=== PATIENT | male | born 1955 | race Caucasian/White ===

== ENCOUNTER 2023-05-15 20:47 | Emergency (ER) | payer OTHER ==
[~2023-05-15] VITALS: Ht 193 cm; Wt 131.1 kg
[~2023-05-15 20:47] MED LIST: AUGMENTIN 875875 MG PO; FARXIGA5 M1 PO; HYDROCODONE BIT1 T11 PO; LANTUS100 U/ML SC; LISINOPRIL30 MG PO; METFORMIN500 MG PO; NOVOLOG FLEX100 U/ML SC; SIMVASTATIN20 MG PO; ZOFRAN4 MG PO
[2023-05-15 21:15] LABS: BASO # 0.1 10*3/uL (0.0-0.1); BASO % 0.9 % (0.0-1.0); EOS # 0.3 10*3/uL (0.0-0.4); EOS % 3.3 % (1.0-4.0); HEMATOCRIT 22.9 % (42.0-52.0); LYMPH # 1.7 10*3/uL (1.3-4.4); LYMPH % 17.1 % (27.0-41.0); MEAN CELL VOLUME 93.5 fl (80.0-94.0); MEAN CORPUSCULAR HGB 32.2 pg (27.0-31.0); MEAN CORPUSCULAR HGB CONC 34.5 g/dl (33.0-37.0); MEAN PLATELET VOLUME 9.3 fl (9.6-12.3); MONO # 0.6 10*3/uL (0.1-1.0); MONO % 6.1 % (3.0-9.0); NEUT # 6.9 10*3/uL (2.3-7.9); NEUT % 70.7 % (47.0-73.0); PLATELET COUNT AUTOMATED 261 10*3/uL (130-400); RED BLOOD COUNT 2.45 10*6/uL (4.50-5.90); WHITE BLOOD COUNT 9.8 10*3/uL (4.8-10.8)
[2023-05-15 21:16] LABS: VENOUS PH 7.346 (7.37-7.45)
[2023-05-15 21:27] LABS: ACT PARTIAL THROMBO TIME 24.8 SECONDS (20.0-32.1)
[2023-05-15 21:46] LABS: POTASSIUM 4.7 mmol/L (3.4-5.1); TOTAL PROTEIN 6.1 gm/dL (6.0-8.0)
[2023-05-15 21:49] LABS: LIPASE 73 U/L (12-53)
[2023-05-15 21:56] LABS: ETHYL ALCOHOL < 3.0 mg/dl (<3)
[2023-05-16 01:01] LABS: URINE AMPHETAMINES Negative (1000ng/ml); URINE BARBITURATES Negative (200ng/ml); URINE BENZODIAZEPINES Negative (200ng/ml); URINE CANNABINOIDS (THC) Negative (50ng/ml); URINE COCAINE Negative (300ng/ml); URINE METHADONE Negative (300ng/ml); URINE OPIATES Negative (300ng/ml); URINE PHENCYCLIDINE Negative (25ng/ml)
[2023-05-16 01:02] LABS: BILIRUBIN Negative (Negative); BLOOD Negative (Negative); CLARITY Clear (Clear); COLOR Yellow (Yellow); GLUCOSE 3+ (Negative); KETONE Negative (Negative); LEUKO ESTERASE Negative (Negative); NITRITE Negative (Negative); SPECIFIC GRAVITY >= 1.030 (1.001-1.030); UROBILINOGEN 0.2 E.U./dl (0.0-1.0)
[2023-05-16 01:20] VITALS: BP 107/40
[2023-05-16 01:20] LABS: EPITHELIAL CELLS 0-2; RBC 0-2 rbc/hpf (0-2)
[2023-05-16 01:37] VITALS: BP 107/85
[2023-05-16 01:51] VITALS: BP 105/51
[2023-05-16 02:40] VITALS: BP 97/30
[2023-05-16 03:38] VITALS: BP 103/44
[2023-05-16 04:09] VITALS: BP 106/46
[2023-05-16 06:42] LABS: HEMATOCRIT 23.5 % (42.0-52.0)
[2023-05-16 07:01] LABS: POTASSIUM 4.3 mmol/L (3.4-5.1)
[2023-05-16] MEDS ORDERED: PANTOPRAZOLE SO20 MG PO (08:44)
[2023-05-16] MEDS ORDERED: Carafate1 GM PO (08:44)
[2023-05-16] MEDS ORDERED: ZESTORETIC 20-1 EACH PO (08:44)
[2023-05-16] MEDS ORDERED: FARXIGA10 M1 PO (08:45)
[2023-05-16] MEDS ORDERED: VICTOZA 3-0.6 MG/0.1 SQ (08:45)
[2023-05-16] MEDS ORDERED: CLOPIDOGREL75 MG PO (08:46)
[2023-05-16] MEDS ORDERED: LANTUS SOL100 UNIT/1 SQ (08:46)
[2023-05-16] MEDS ORDERED: METOPROLOL SUCC25 M2 PO (08:46)
[2023-05-16] MEDS ORDERED: NOVOLOG FL100 UNIT/2 SQ (08:47)
[2023-05-16] MEDS ORDERED: MIRALAX17 GM PO (09:03)
== END 2023-05-17 02:51 | disposition short-term general hospital (02) ==
LOC: ED 20:47
PROVIDERS: Family Medicine
DX: R55 Syncope and collapse (principal); D62 Acute posthemorrhagic anemia; N17.9 Acute kidney failure, unspecified; K92.2 Gastrointestinal hemorrhage, unspecified; I21.4 Non-ST elevation (NSTEMI) myocardial infarction; E11.9 Type 2 diabetes mellitus without complications; E78.00 Pure hypercholesterolemia, unspecified; Z79.899 Other long term (current) drug therapy